=== PATIENT | female | born 1930 | race Caucasian/White ===

== ENCOUNTER 2016-10-28 20:43 | Emergency (ER) | payer OTHER ==
[~2016-10-28] VITALS: Ht 175.3 cm; Wt 59.0 kg
[~2016-10-28 20:43] MED LIST: AMIO200T2 GT
--- NOTE | 2016-10-28 20:55 | NUR ---
PT BIB RA 84 FROM HOME WITH C/O SLURRED SPEECH AND GENERALIZED WEAKNESS FOR 3 DAYS.PT AWAKE AND ALERT.WILL ANSWER SIMPLE QUESTIONS.DENIES PAIN.NO SLURRED SPEECH NOTED.ABLE TO MOVE ALL EXTREMITIES... PT IS ALERT, ORIENTED X 2, NO RESP DISTRESS NOTED OR REPORTED UPON ASSESSMENT... MD AT BEDSIDE...
[2016-10-28 21:24] LABS: BASOPHILS # (AUTO) 0.1 K/uL (0.0-8.0); BASOPHILS % (AUTO) 0.6 % (0.0-2.0); EOSINOPHILS # (AUTO) 0.1 K/uL (0.0-0.7); EOSINOPHILS % (AUTO) 1.7 % (0.0-7.0); HEMATOCRIT 32.1 % (31.2-41.9); HEMOGLOBIN 10.7 g/dL (10.9-14.3); LYMPHOCYTES # (AUTO) 1.8 K/uL (20.0-40.0); LYMPHOCYTES % (AUTO) 21.1 % (20.5-51.5); MEAN CORPUSCULAR HEMOGLOBIN 29.2 uug (24.7-32.8); MEAN CORPUSCULAR HGB CONC 33 g/dL (32.3-35.6); MONOCYTES # (AUTO) 0.8 K/uL (2.0-10.0); NEUTROPHILS # (AUTO) 5.7 K/uL (1.8-8.9); NEUTROPHILS % (AUTO) 67.6 % (38.5-71.5); PLATELET COUNT (AUTO) 176 K/uL (179-408); RED BLOOD CELL COUNT(AUTO) 3.65 MIL/uL (3.63-4.92); RED CELL DISTRIBUTION WIDTH 14.2 % (12.3-17.7); WHITE BLOOD COUNT (AUTO) 8.4 K/uL (3.8-11.8)
[2016-10-28 21:30] LABS: CALCIUM 9.5 mg/dL (8.5-10.1); CREATININE 1.3 mg/dL (0.6-1.3); POTASSIUM 3.9 mmol/L (3.5-5.1)
--- NOTE | 2016-10-28 21:30 | NUR ---
COMMERCIAL PROPERTY MANAGER TO TAKE PT TO RADIOLOGY FOR CT SCAN, PT ALERT, ORIENTED 2, NO RESP DISTRESS NOTED OR REPORTED UPON TRANSFER ASSESSMENT... TRANSFERRED VIA GURNEY....
[2016-10-28 21:36] LABS: *BILIRUBIN,URIN NEGATIVE (NEGATIVE); *BLOOD, URINE 1+ (NEGATIVE); *CLARITY,URINE SLIGHTLY CLOUDY (CLEAR); *COLOR,URINE YELLOW (YELLOW); *KETONES,URINE NEGATIVE (NEGATIVE); *PROTEIN,URINE NEGATIVE (NEGATIVE); *UROBILINOGEN,URINE 0.2 E.U./dl (NORMAL); LEUKOCYTE ESTERASE ,URINE 2+ (NEGATIVE); NITRITE, URINE NEGATIVE (NEGATIVE); UGLUCOSE NEGATIVE (NEGATIVE)
[2016-10-28 21:37] LABS: LACTIC ACID 1.8 mmol/L (0.4-2.0); TROPONIN I < 0.017 ng/mL (0.00-0.056)
[2016-10-28 21:42] LABS: ALBUMIN 3.2 g/dL (3.4-5.0); BILIRUBIN,DIRECT 0.1 mg/dL (0.0-0.2); BILIRUBIN,TOTAL 0.5 mg/dL (0.2-1.0); TOTAL PROTEIN, SERUM 7.8 g/dL (6.4-8.2)
[2016-10-28 21:44] LABS: BACTERIA,URINE MODERATE /HPF (NONE SEEN); SQUAMOUS EPITHELIAL CELL,UR FEW /HPF (NONE SEEN); WBC,URINE 20-50 /HPF (0-3)
--- NOTE | 2016-10-28 21:55 | NUR ---
CALL RECEIVED FROM DAUGHTER BE REQUESTING UPDATE, ADVISED PT CURRENTLY IN CT, ADVISED OF PLAN OF CARE... ADVISED NO RESP DISTRESS NOTED OR REPORTED UPON ASSESSMENT...
[2016-10-28] MEDS ORDERED: CEFTRIAXONE 1 G in IV DEXTROSE 5% 50 ML IV ONE (22:15)
[2016-10-28] MEDS ORDERED: CEFTRIAXONE 1 G VIAL ONE (22:33)
--- NOTE | 2016-10-28 23:24 | NUR ---
CALLED [facility] DR MARCELINO REQUESTED. WAITING FOR CALL BACK FROM KISHORE CERVANTES
--- NOTE | 2016-10-29 01:43 | NUR ---
Patient Tranfers to outside Facility Physician: DR. MARCELINO Location: [facility], ROOM 3115A, NURSE: COREEN
== END 2016-10-29 01:46 | disposition short-term general hospital (02) ==
LOC: ER 20:43
DX: J90 Pleural effusion, not elsewhere classified (principal); N39.0 Urinary tract infection, site not specified; R53.1 Weakness; R94.31 Abnormal electrocardiogram [ECG] [EKG]; D68.8 Other specified coagulation defects; R47.81 Slurred speech; Z79.01 Long term (current) use of anticoagulants; Z95.0 Presence of cardiac pacemaker
CPT/HCPCS: 36415; 70030-TC; 70450; 71010; 71250; 83605; 85025; 85730; 87040; 87077; 87086; 93005; A4663; C1758; J0696; J7060

== ENCOUNTER 2016-11-05 13:50 | Emergency (ER) | payer OTHER ==
[~2016-11-05] VITALS: Ht 162.6 cm; Wt 63.5 kg
[2016-11-05 15:10] LABS: BASOPHILS % (AUTO) 0.5 % (0.0-2.0); EOSINOPHILS # (AUTO) 0.1 K/uL (0.0-0.7); EOSINOPHILS % (AUTO) 1.8 % (0.0-7.0); HEMATOCRIT 34.2 % (37-47); HEMOGLOBIN 11.1 G/DL (12.0-16.0); LYMPHOCYTES # (AUTO) 0.8 K/uL (20.0-40.0); LYMPHOCYTES % (AUTO) 9.8 % (20.5-51.5); MEAN CORPUSCULAR HEMOGLOBIN 28.7 UUG (27.0-31.0); MEAN CORPUSCULAR HGB CONC 33 g/dL (32.0-37.0); MEAN CORPUSCULAR VOLUME 88.2 FL (81.0-99.0); MONOCYTES # (AUTO) 0.7 K/uL (2.0-10.0); MONOCYTES % (AUTO) 7.9 % (0.0-11.0); NEUTROPHILS # (AUTO) 6.7 K/uL (1.8-8.9); PLATELET COUNT (AUTO) 186 K/UL (150-450); RED BLOOD CELL COUNT(AUTO) 3.87 MIL/UL (4.2-5.4); RED CELL DISTRIBUTION WIDTH 14.4 % (11.5-14.5); WHITE BLOOD COUNT (AUTO) 8.3 K/UL (4.0-11.2)
[2016-11-05 15:20] LABS: LACTIC ACID 1.3 mmol/L (0.4-2.0); TROPONIN I 0.024 ng/mL (0.00-0.056)
[2016-11-05 15:23] LABS: CALCIUM 8.8 mg/dL (8.5-10.1); CREATININE 1.1 mg/dL (0.6-1.3); POTASSIUM 4.5 mmol/L (3.5-5.1)
[2016-11-05 15:29] LABS: ALBUMIN 2.7 g/dL (3.4-5.0); BILIRUBIN,DIRECT 0.1 mg/dL (0.0-0.2); BILIRUBIN,TOTAL 0.4 mg/dL (0.2-1.0); TOTAL PROTEIN, SERUM 6.9 g/dL (6.4-8.2)
[2016-11-05] MEDS ORDERED: CEFTRIAXONE 1 G in IV DEXTROSE 5% 50 ML IV ONE (16:00)
[2016-11-05] MEDS ORDERED: AZITHROMYCIN IV 500 MG in IV DEXTROSE 5% 250 ML IV ONE (16:00)
[2016-11-05] MEDS ORDERED: AZITHROMYCIN 500 MG VIAL IV ONE (16:39)
[2016-11-05] MEDS ORDERED: CEFTRIAXONE 1 G VIAL ONE (16:39)
--- NOTE | 2016-11-05 18:36 | NUR ---
called [facility] again and gave the vs.
--- NOTE | 2016-11-05 18:54 | NUR ---
[facility] called back, talked to jeanine booth, authorization number [id number]
--- NOTE | 2016-11-05 19:42 | NUR ---
[facility], SPOKE WITH ANTIONETTE WHO STATED BED HAS BEEN OBTAINED, NOW WAITING FOR MD TO ACCEPT PT, ONCE THAT HAPPENS THEY WILL C/B WITH BED INFO, AND WHO TO GIVE REPORT TO, WELL TRANSPORT TIME....
--- NOTE | 2016-11-05 20:08 | NUR ---
[facility], ACCEPTING MD ARAMBULA....[facility] WILL BE HERE BY 2099...
--- NOTE | 2016-11-05 21:21 | NUR ---
Patient Tranfers to outside Facility Physician: Mala Location: [place], emergency room... Addendum: 11/05/16 at 2122 by SHANELLE pt awake, alert, able to make needs known, no resp distress noted or reported upon assessment...
== END 2016-11-05 21:43 | disposition short-term general hospital (02) ==
LOC: ER 13:50
DX: J90 Pleural effusion, not elsewhere classified (principal); J18.9 Pneumonia, unspecified organism; H40.9 Unspecified glaucoma; R55 Syncope and collapse; R47.81 Slurred speech; Z95.0 Presence of cardiac pacemaker; Z88.2 Allergy status to sulfonamides
CPT/HCPCS: 70030-TC; 70450; 71010; 83605; 84443; 85025; 85730; 87040; 93005; A4663; J0456; J0696; J3490; J7050

== ENCOUNTER 2017-05-29 20:28 | Emergency (ER) | payer OTHER ==
[~2017-05-29] VITALS: Ht 175.3 cm; Wt 67.6 kg
[2017-05-29] MEDS: IV NORMAL SALINE 500 ML BAG IV ONE (21:00)
[2017-05-29 21:07] LABS: BASOPHILS % (AUTO) 0.6 % (0.0-2.0); EOSINOPHILS # (AUTO) 0.1 K/uL (0.0-0.7); EOSINOPHILS % (AUTO) 1.6 % (0.0-7.0); HEMATOCRIT 38.5 % (37-47); HEMOGLOBIN 12.8 G/DL (12.0-16.0); LYMPHOCYTES # (AUTO) 1.3 K/UL (0.8-4.8); LYMPHOCYTES % (AUTO) 22.7 % (20.5-51.5); MEAN CORPUSCULAR HGB CONC 33 g/dL (32.0-37.0); MEAN CORPUSCULAR VOLUME 90.7 FL (81.0-99.0); MONOCYTES # (AUTO) 0.6 K/UL (0.1-1.30); MONOCYTES % (AUTO) 10.5 % (0.0-11.0); NEUTROPHILS # (AUTO) 3.8 K/UL (1.8-8.9); NEUTROPHILS % (AUTO) 64.6 % (38.5-71.5); PLATELET COUNT (AUTO) 151 K/UL (150-450); RED BLOOD CELL COUNT(AUTO) 4.25 MIL/UL (4.2-5.4); WHITE BLOOD COUNT (AUTO) 5.8 K/UL (4.0-11.2)
[2017-05-29 21:13] LABS: CARBON DIOXIDE 34 mmol/L (21-32); CHLORIDE 97 mmol/L (98-107); CREATININE 1.1 mg/dL (0.6-1.3); GLUCOSE 127 mg/dL (74-106); UREA NITROGEN, BLOOD 20 mg/dL (7-18)
[2017-05-29 21:25] LABS: ALANINE AMINOTRANSFERASE 63 U/L (14-59); ALKALINE PHOSPHATASE 76 U/L (50-136); ASPARTATE AMINOTRANSFERASE 54 U/L (15-37); BILIRUBIN,DIRECT 0.1 mg/dL (0.0-0.2); BILIRUBIN,TOTAL 0.3 mg/dL (0.2-1.0); TOTAL PROTEIN, SERUM 7.3 g/dL (6.4-8.2)
[2017-05-29 21:50] LABS: *BILIRUBIN,URIN NEGATIVE (NEGATIVE); *BLOOD, URINE 1+ (NEGATIVE); *CLARITY,URINE CLOUDY (CLEAR); *COLOR,URINE YELLOW (YELLOW); *KETONES,URINE NEGATIVE (NEGATIVE); *PROTEIN,URINE NEGATIVE (NEGATIVE); *UROBILINOGEN,URINE 0.2 E.U./dl (NORMAL); LEUKOCYTE ESTERASE ,URINE 3+ (NEGATIVE); NITRITE, URINE POSITIVE (NEGATIVE); PH,URINE 7.5 (5.0-8.0); UGLUCOSE NEGATIVE (NEGATIVE)
[2017-05-29 22:03] LABS: BACTERIA,URINE MANY /HPF (NONE SEEN); SQUAMOUS EPITHELIAL CELL,UR MODERATE /HPF (NONE SEEN); WBC,URINE 50-80 /HPF (0-3)
[2017-05-29] MEDS: CEFTRIAXONE 1 G in IV DEXTROSE 5% 50 ML IV ONE (22:22)
[2017-05-29] MEDS ORDERED: CEFTRIAXONE 1 G VIAL ONE (22:31)
--- NOTE | 2017-05-29 22:32 | NUR ---
LISSETTE speaking with Jose CERVANTES, Dr. Vieira.
[2017-05-29] MEDS ORDERED: LEVOFLOXACIN 750MG/D5W 0 ML IV ONE (23:25)
--- NOTE | 2017-05-29 23:30 | NUR ---
Call placed to [facility] for tranportation HOME.
[2017-05-29] MEDS ORDERED: LEVOFLOXACIN 750 MG TABLET ONE (23:43)
[2017-05-29] MEDS: LEVOFLOXACIN 750 MG/D5W 150 ML PIGGYBACK IV ONE (23:48)
[2017-05-29] MEDS: LEVOFLOXACIN 750 MG TABLET PO ONE (23:48)
--- NOTE | 2017-05-30 00:30 | NUR ---
No transportation information given at this time. Call placed to [facility] for status, ETA 60 min.
--- NOTE | 2017-05-30 01:00 | NUR ---
Patient's son stated he did not want to wait for ambulance, due to excessive wait time, he stated he would transport the patient via his personal vehicle. Call placed to [facility] to cancel transportation. LISSETTE notified.
--- NOTE | 2017-05-30 01:13 | NUR ---
Patient discharged to home in stable conditon. Written and verbal after care instructions given. Patient verbalizes understanding of instructions.
[2017-05-30 01:17] VITALS: BP 111/72
== END 2017-05-30 01:18 | disposition home or self-care (01) ==
LOC: ER 20:29
DX: N39.0 Urinary tract infection, site not specified (principal); R11.2 Nausea with vomiting, unspecified; F03.90 Unspecified dementia, unspecified severity, without behavioral disturbance, psychotic disturbance, mood disturbance, and anxiety; Z86.73 Personal history of transient ischemic attack (TIA), and cerebral infarction without residual deficits; Z88.2 Allergy status to sulfonamides; Z95.0 Presence of cardiac pacemaker
CPT/HCPCS: 36415; 70450; 71010; 80048; 80076; 81001; 83605; 83880; 84443; 84484; 85025; 85730; 87040 ×2; 87086; 93005; 96365; 99285; A4663; J0696; J7040 ×2; J7060; 70030-TC; J1956; J7030

== ENCOUNTER → 2017-11-01 | Emergency (ER) | payer OTHER ==
[~2017-11-01] VITALS: Ht 167.6 cm; Wt 68.0 kg
[~2017-11-01] MED LIST changes: +ACET-2154 GT; +ATORVASTATIN CALCIUM 40 MG TAB PO; +BISA10SU12 RC; +BRIM10DR6 EACHEYE; +CALC-837 GT; +CEFTRIAXONE 1 G VIAL ONE; +CEFTRIAXONE 1 G in IV DEXTROSE 5% 50 ML IV ONE; +CRAN500C4 GT; +DOCU-141 GT; +GENTAMICIN SULFATE 80 MG/2 ML VIAL ONE; +GENTAMICIN SULFATE INJ 80 MG in IV DEXTROSE 5% 100 ML IV ONE; +IV NORMAL SALINE 1000 ML BAG IV ONE; +MIDODRINE HCL 5 MG GT; +MIRTAZAPINE 15 MG GT; +MULT-1188 GT; +SENN-18 GT; +SERTRALINE HCL 50 MG GT; +TRAV5DRO OP; +WARF2.5T85 GT
[2017-11-01 15:38] LABS: BASOPHILS % (AUTO) 0.5 % (0.0-2.0); EOSINOPHILS # (AUTO) 0.1 K/uL (0.0-0.7); EOSINOPHILS % (AUTO) 0.7 % (0.0-7.0); HEMATOCRIT 38.8 % (31.2-41.9); HEMOGLOBIN 12.7 g/dL (10.9-14.3); LYMPHOCYTES # (AUTO) 2.2 K/uL (20.0-40.0); MEAN CORPUSCULAR HEMOGLOBIN 29.5 uug (24.7-32.8); MEAN CORPUSCULAR HGB CONC 33 g/dL (32.3-35.6); MEAN CORPUSCULAR VOLUME 89.7 fL (75.5-95.3); MONOCYTES # (AUTO) 0.7 K/uL (2.0-10.0); MONOCYTES % (AUTO) 9.5 % (0.0-11.0); NEUTROPHILS # (AUTO) 4.8 K/uL (1.8-8.9); NEUTROPHILS % (AUTO) 61.3 % (38.5-71.5); PLATELET COUNT (AUTO) 130 K/uL (179-408); RED BLOOD CELL COUNT(AUTO) 4.32 MIL/uL (3.63-4.92); WHITE BLOOD COUNT (AUTO) 7.8 K/uL (3.8-11.8)
[2017-11-01 15:45] LABS: CARBON DIOXIDE 30 mmol/L (21-32); CHLORIDE 97 mmol/L (98-107); CREATININE 1.2 mg/dL (0.6-1.3); GLUCOSE 129 mg/dL (74-106); UREA NITROGEN, BLOOD 19 mg/dL (7-18)
[2017-11-01 15:59] LABS: ALANINE AMINOTRANSFERASE 35 U/L (14-59); ALKALINE PHOSPHATASE 94 U/L (50-136); ASPARTATE AMINOTRANSFERASE 35 U/L (15-37); BILIRUBIN,DIRECT 0.1 mg/dL (0.0-0.2); BILIRUBIN,TOTAL 0.4 mg/dL (0.2-1.0); THYROID STIMULATING HORMONE 5.027 mIU/mL (0.358-3.740); TOTAL PROTEIN, SERUM 7.7 g/dL (6.4-8.2)
--- NOTE | 2017-11-01 17:00 | NUR ---
PT IS IN ROOM #1B. DR VERAS EVALUATED THE PT.
[2017-11-01 17:12] LABS: *BILIRUBIN,URIN NEGATIVE (NEGATIVE); *BLOOD, URINE 2+ (NEGATIVE); *CLARITY,URINE CLOUDY (CLEAR); *COLOR,URINE LIGHT YELLOW (YELLOW); *KETONES,URINE NEGATIVE (NEGATIVE); *PROTEIN,URINE NEGATIVE (NEGATIVE); *UROBILINOGEN,URINE 0.2 E.U./dl (NORMAL); LEUKOCYTE ESTERASE ,URINE 3+ (NEGATIVE); NITRITE, URINE NEGATIVE (NEGATIVE); PH,URINE 7.5 (5.0-8.0); UGLUCOSE NEGATIVE (NEGATIVE)
[2017-11-01 17:23] LABS: WBC,URINE 50-80 /HPF (0-3)
[2017-11-01 17:24] LABS: BACTERIA,URINE MANY /HPF (NONE SEEN); SQUAMOUS EPITHELIAL CELL,UR FEW /HPF (NONE SEEN)
--- NOTE | 2017-11-01 19:18 | NUR ---
REPORT GIVEN TO RESEARCH CLERK RN.
--- NOTE | 2017-11-01 20:56 | NUR ---
[facility] ACCEPTING DOCTOR, MD DOAN AT [facility]. WILL BE CONTACTED LATER WITH FURTHER TRANSFER INFO.
--- NOTE | 2017-11-01 21:45 | NUR ---
CALL RECEIVED FROM [facility]. TRANSFER INFO: PT GOING TO [facility] RM [id number]. ACCEPTED BY MD DOAN. [facility] ETA [id number]
--- NOTE | 2017-11-01 22:25 | NUR ---
URINE OUTPUT GIVEN TO [facility] REP[facility]
--- NOTE | 2017-11-01 22:30 | NUR ---
REPORT GIVEN TO [facility]SE[facility], RN
--- NOTE | 2017-11-01 23:15 | NUR ---
[facility] HAS ARRIVED.
--- NOTE | 2017-11-01 23:28 | NUR ---
REPORT GIVEN TO [facility] RADHA ARANGO.
== END | disposition home or self-care (01) ==
LOC: ER 14:58
DX: R55 Syncope and collapse (principal); A41.9 Sepsis, unspecified organism; N39.0 Urinary tract infection, site not specified; Z95.0 Presence of cardiac pacemaker; Z86.73 Personal history of transient ischemic attack (TIA), and cerebral infarction without residual deficits; Z88.2 Allergy status to sulfonamides; Z79.01 Long term (current) use of anticoagulants; Z79.899 Other long term (current) drug therapy
CPT/HCPCS: 36415; 70030-TC; 70450; 71045; 72125; 83605; 84443; 85025; 85730; 87040; 87077; 87086; 93005; A4663; J0696; J1580; J3490

== ENCOUNTER 2018-02-20 23:44 | Emergency (ER) | payer OTHER ==
[~2018-02-20] VITALS: Ht 167.6 cm; Wt 65.8 kg
[~2018-02-20 23:44] MED LIST changes: -AMIO200T2 GT; +AMIO200T4 GT; -CEFTRIAXONE 1 G VIAL ONE; -CEFTRIAXONE 1 G in IV DEXTROSE 5% 50 ML IV ONE; -GENTAMICIN SULFATE 80 MG/2 ML VIAL ONE; -GENTAMICIN SULFATE INJ 80 MG in IV DEXTROSE 5% 100 ML IV ONE; -IV NORMAL SALINE 1000 ML BAG IV ONE
[2018-02-21] MEDS ORDERED: ACETAMINOPHEN ES 500 MG TABLET PO ONE
--- NOTE | 2018-02-21 | NUR ---
Dr. Craft at bedside for MSE.
[2018-02-21] MEDS ORDERED: ACETAMINOPHEN ES 500 MG TABLET ONE (00:25)
[2018-02-21 00:28] LABS: CARBON DIOXIDE 30 mmol/L (21-32); CHLORIDE 99 mmol/L (98-107); GLUCOSE 103 mg/dL (74-106); POTASSIUM 3.8 mmol/L (3.5-5.1); UREA NITROGEN, BLOOD 16 mg/dL (7-18)
[2018-02-21] MEDS ORDERED: BENZONATATE 100 MG CAPSULE PO ONE (00:30)
--- NOTE | 2018-02-21 00:32 | NUR ---
Xray at bedside.
[2018-02-21 00:34] LABS: BASOPHILS % (AUTO) 0.3 % (0.0-2.0); EOSINOPHILS % (AUTO) 0.3 % (0.0-7.0); HEMATOCRIT 39.2 % (31.2-41.9); HEMOGLOBIN 13.2 g/dL (10.9-14.3); LYMPHOCYTES # (AUTO) 0.8 K/uL (20.0-40.0); LYMPHOCYTES % (AUTO) 10.5 % (20.5-51.5); MEAN CORPUSCULAR HEMOGLOBIN 31.7 uug (24.7-32.8); MEAN CORPUSCULAR HGB CONC 34 g/dL (32.3-35.6); MEAN CORPUSCULAR VOLUME 94.3 fL (75.5-95.3); MONOCYTES # (AUTO) 0.9 K/uL (2.0-10.0); MONOCYTES % (AUTO) 10.8 % (0.0-11.0); NEUTROPHILS # (AUTO) 6.3 K/uL (1.8-8.9); NEUTROPHILS % (AUTO) 78.1 % (38.5-71.5); PLATELET COUNT (AUTO) 104 K/uL (179-408); RED BLOOD CELL COUNT(AUTO) 4.16 MIL/uL (3.63-4.92); WHITE BLOOD COUNT (AUTO) 8.1 K/uL (3.8-11.8)
[2018-02-21 00:40] LABS: ALANINE AMINOTRANSFERASE 63 U/L (14-59); ALKALINE PHOSPHATASE 86 U/L (50-136); ASPARTATE AMINOTRANSFERASE 62 U/L (15-37); BILIRUBIN,DIRECT 0.2 mg/dL (0.0-0.2); BILIRUBIN,TOTAL 0.4 mg/dL (0.2-1.0); TOTAL PROTEIN, SERUM 7.5 g/dL (6.4-8.2)
--- NOTE | 2018-02-21 00:50 | NUR ---
Pt coughing due to excessive secretions, suctioned patient, suctioned approximately 5cc of white secretion.
--- NOTE | 2018-02-21 00:52 | NUR ---
Pt coughing due to excessive secretions, suctioned a 2nd time, able to suction 3cc of whitish secretion. Pt tolerated procedure well. notified.
[2018-02-21] MEDS ORDERED: ALBUTEROL SULFATE 2.5 MG/3 ML NEBU NEB ONE (01:00)
--- NOTE | 2018-02-21 01:02 | NUR ---
Respiratory at bedside for breathing treatment.
[2018-02-21] MEDS ORDERED: ALBUTEROL SULFATE 2.5 MG/3 ML NEBU ONE (01:11)
[2018-02-21] MEDS ORDERED: ALEN70TA45 PO (01:12)
--- NOTE | 2018-02-21 01:19 | NUR ---
CALLED [facility] SPOKE WITH ALTON BIRD. DR VILLA WILL CALL BACK DR CAIN
--- NOTE | 2018-02-21 01:28 | NUR ---
DR CAIN SPEAKING W/ DR MOTA FROM [place]
[2018-02-21] MEDS ORDERED: LEVOFLOXACIN 750 MG/D5W 150 ML PIGGYBACK IV ONE (01:30)
--- NOTE | 2018-02-21 01:45 | NUR ---
Urine sample taken via [facility], sent to lab.
[2018-02-21] MEDS ORDERED: LEVOFLOXACIN 750MG/D5W 150 ML IV ONE (01:53)
[2018-02-21 02:00] LABS: *BILIRUBIN,URIN NEGATIVE (NEGATIVE); *BLOOD, URINE 2+ (NEGATIVE); *CLARITY,URINE TURBID (CLEAR); *COLOR,URINE YELLOW (YELLOW); *KETONES,URINE NEGATIVE (NEGATIVE); *PROTEIN,URINE NEGATIVE (NEGATIVE); *UROBILINOGEN,URINE 0.2 E.U./dl (NORMAL); LEUKOCYTE ESTERASE ,URINE 2+ (NEGATIVE); NITRITE, URINE POSITIVE (NEGATIVE); PH,URINE 7.5 (5.0-8.0); UGLUCOSE NEGATIVE (NEGATIVE)
[2018-02-21 02:02] LABS: BACTERIA,URINE MANY /HPF (NONE SEEN); RBC,URINE 20-50 /HPF (0-3); SQUAMOUS EPITHELIAL CELL,UR FEW /HPF (NONE SEEN); WBC,URINE 20-50 /HPF (0-3)
[2018-02-21 02:03] LABS: MUCUS,URINE MODERATE /LPF (0-FEW); URINE AMORPHOUS PHOSPHATES MANY /HPF
--- NOTE | 2018-02-21 02:33 | NUR ---
[facility] called with transfer information, spoke with Francesco. [facility] ETA 0330. Accepting MD Dr. Irizarry, room 4056A. Number to report to .
--- NOTE | 2018-02-21 03:10 | NUR ---
Report given to Melanie ROSAS [facility].
--- NOTE | 2018-02-21 03:45 | NUR ---
[facility] arrived to transport patient to [facility]. Report and documentation given to Radha Rowley RN of [facility] [address], trip#[id number]
--- NOTE | 2018-02-21 04:05 | NUR ---
Pt out of ER via [facility], to be transported to [facility].
== END 2018-02-21 04:09 | disposition short-term general hospital (02) ==
LOC: ER 23:48
DX: J40 Bronchitis, not specified as acute or chronic (principal); R09.3 Abnormal sputum; J69.0 Pneumonitis due to inhalation of food and vomit; R09.89 Other specified symptoms and signs involving the circulatory and respiratory systems; I48.91 Unspecified atrial fibrillation; E78.5 Hyperlipidemia, unspecified; Z95.0 Presence of cardiac pacemaker; Z88.2 Allergy status to sulfonamides; Z90.710 Acquired absence of both cervix and uterus
CPT/HCPCS: 36415; 70030-TC; 71045; 83605; 85025; 85730; 87040; 87086; 93005; A4663; A9150; C1758; J1956